=== PATIENT | male | born 1975 | race Two or more races ===

== ENCOUNTER 2017-09-19 16:52 | Emergency (ER) | payer SELFPAY ==
[~2017-09-19] VITALS: Ht 165.1 cm; Wt 72.6 kg
[2017-09-19] MEDS ORDERED: ASPIRIN 81 MG TAB.CHEW ONE (17:12)
[2017-09-19 17:26] LABS: BASOPHILS # (AUTO) 0.1 /CMM (0.0-0.2); BASOPHILS % (AUTO) 0.8 % (0.0-2.0); EOSINOPHILS % (AUTO) 6.1 % (0.0-6.0); HEMATOCRIT 45 % (39-51); HEMOGLOBIN 14.9 g/dL (13.5-17.5); LYMPHOCYTES % (AUTO) 25.1 % (20.0-44.0); MEAN CORPUSCULAR HEMOGLOBIN 28 PG (26.0-33.0); MEAN CORPUSCULAR HGB CONC 33 g/dl (31.0-36.0); MEAN CORPUSCULAR VOLUME 84 fL (80-96); MONOCYTES # (AUTO) 0.6 /CMM (0.1-1.30); NEUTROPHILS # (AUTO) 4.8 /CMM (1.8-8.9); PLATELET COUNT (AUTO) 307 /CMM (150-450); RDW COEFFICIENT OF VARIATION 12.8 (11.5-15.0); RED BLOOD CELL COUNT(AUTO) 5.37 MIL/uL (4.5-6.0)
--- NOTE | 2017-09-19 17:29 | NUR ---
BIB SELF C/O CP "PRESSURE" NON RADIATING CONTINUOSLY SINCE SAT. DENIES SOB, DIZZINESS, N/V, ARM/JAW PAIN @ THIS TIME. EKG DONE. ON MONITOR, NSR. MEDICATED FOR CP. PT ON HIS CELLPHONE, NAD NOTED @ THIS TIME.
[2017-09-19] MEDS ORDERED: ASPIRIN 81 MG TAB.CHEW PO ONE (17:30)
[2017-09-19 17:37] LABS: CALCIUM, SERUM 9.1 mg/dL (8.5-10.1); CARBON DIOXIDE 27 mmol/L (21-32); CHLORIDE 106 mmol/L (98-107); CREATININE 1.1 mg/dL (0.6-1.3); GLUCOSE 138 mg/dL (74-106); POTASSIUM 3.6 mmol/L (3.5-5.1); SODIUM SERUM 140 mmol/L (136-145); UREA NITROGEN, BLOOD 14 mg/dL (7-18)
[2017-09-19 17:41] LABS: INR 0.89 (0.85-1.15)
[2017-09-19 17:46] LABS: TROPONIN I < 0.017 ng/mL (0.00-0.056)
[2017-09-19 18:53] VITALS: BP 130/68
== END 2017-09-19 18:08 | disposition home or self-care (01) ==
LOC: ER 16:53
DX: F10.20 Alcohol dependence, uncomplicated (principal); R07.89 Other chest pain; Z60.2 Problems related to living alone; Y90.9 Presence of alcohol in blood, level not specified
CPT/HCPCS: 36415; 71045; 80048; 84484; 85025; 85730; 93005; 99285; A4606; Z7610

== ENCOUNTER 2019-02-05 16:12 | Emergency (ER) | payer BC ==
[~2019-02-05] VITALS: Ht 177.8 cm; Wt 74.8 kg
[2019-02-05 16:46] LABS: BASOPHILS # (AUTO) 0.1 /CMM (0.0-0.2); BASOPHILS % (AUTO) 1.3 % (0.0-2.0); EOSINOPHILS % (AUTO) 4.1 % (0.0-6.0); HEMATOCRIT 48 % (39-51); HEMOGLOBIN 15.6 g/dL (13.5-17.5); LYMPHOCYTES # (AUTO) 2.2 /CMM (0.8-4.8); MEAN CORPUSCULAR HGB CONC 32 g/dl (31.0-36.0); MEAN CORPUSCULAR VOLUME 87 fL (80-96); MONOCYTES # (AUTO) 0.6 /CMM (0.1-1.30); MONOCYTES % (AUTO) 6.4 % (2.0-12.0); NEUTROPHILS % (AUTO) 64.2 % (43.0-81.0); PLATELET COUNT (AUTO) 303 /CMM (150-450); RED BLOOD CELL COUNT(AUTO) 5.57 MIL/uL (4.5-6.0); WHITE BLOOD COUNT (AUTO) 9.3 K/uL (4.3-11.0)
[2019-02-05 17:00] LABS: CALCIUM, SERUM 9.1 mg/dL (8.5-10.1); POTASSIUM 4.1 mmol/L (3.5-5.1)
[2019-02-05 17:06] LABS: ALBUMIN 3.7 g/dL (3.4-5.0); BILIRUBIN,TOTAL 0.3 mg/dL (0.2-1.0); TOTAL PROTEIN, SERUM 7.5 g/dL (6.4-8.2)
--- NOTE | 2019-02-05 17:13 | NUR ---
NUMBNESS TO HANDS S/P DRINKING ALCOHOL, NO RESOLVED 3 DAYS. ON ROOM AIR, BREATHING EVENLY AND UNLABORED, CONNECTED TO THE MONITOR AND PULSE OX. KEPT COMFORTABLE, WILL CONTINUE TO MONITOR ACCORDINGLY.
[2019-02-05 17:37] VITALS: BP 143/65
--- NOTE | 2019-02-05 17:37 | NUR ---
Patient discharged to home in stable condition. Written and verbal after care instructions given. Patient verbalizes understanding of instruction.
== END 2019-02-05 17:37 | disposition home or self-care (01) ==
LOC: ER 16:12
DX: R20.2 Paresthesia of skin (principal); F10.10 Alcohol abuse, uncomplicated; Y90.9 Presence of alcohol in blood, level not specified; Z60.2 Problems related to living alone
CPT/HCPCS: 36415; 80053-TC; 83735-TC; 85025-TC

== ENCOUNTER 2019-12-15 23:49 | Emergency (ER) | payer SELFPAY ==
[~2019-12-15] VITALS: Ht 160 cm; Wt 59.9 kg
[2019-12-15] MEDS ORDERED: TDAP [DIPH/PERTUSSIS/TET] 0.5 ML VIAL IM ONE (23:53)
[2019-12-16] MEDS ORDERED: TDAP [DIPH/PERTUSSIS/TET] 0.5 ML VIAL IM ONE
--- NOTE | 2019-12-16 | NUR ---
PATIENT CAME TO ER BED 10 BIB [employer] AND RA C/O HITTING BETWEEN 3-6 CARS. PATIENT IS ROMANSH SPEAKING. PATIENT IS AAOX2. PATIENT HAS A LACERATION TO THE TOP OF HIS FOREHEAD. PATIENT STATES THAT HE HIT HIS CHEST ON THE STEERING WHEEL. PATIENT IS CONNECTED TO THE MONITOR. CHEST RISES AND FALLS EVENLY WITHOUT LABOR.
--- NOTE | 2019-12-16 00:12 | NUR ---
BLOOD DRAWN AND SENT TO THE LAB WITH PHARMACIST PER DIEM
[2019-12-16 00:24] LABS: BASOPHILS # (AUTO) 0.1 /CMM (0.0-0.2); BASOPHILS % (AUTO) 0.7 % (0.0-2.0); EOSINOPHILS % (AUTO) 1.2 % (0.0-6.0); HEMATOCRIT 46 % (39-51); HEMOGLOBIN 15.7 g/dL (13.5-17.5); LYMPHOCYTES # (AUTO) 2.1 /CMM (0.8-4.8); LYMPHOCYTES % (AUTO) 20.2 % (20.0-44.0); MEAN CORPUSCULAR HGB CONC 34 g/dl (31.0-36.0); MEAN CORPUSCULAR VOLUME 103 fL (80-96); MONOCYTES # (AUTO) 0.8 /CMM (0.1-1.30); MONOCYTES % (AUTO) 7.4 % (2.0-12.0); NEUTROPHILS # (AUTO) 7.3 /CMM (1.8-8.9); NEUTROPHILS % (AUTO) 70.5 % (43.0-81.0); PLATELET COUNT (AUTO) 243 /CMM (150-450); WHITE BLOOD COUNT (AUTO) 10.4 K/uL (4.3-11.0)
[2019-12-16] MEDS ORDERED: IOHEXOL-300 100 ML VIAL IV ONE (00:27)
[2019-12-16] MEDS ORDERED: IV NS 0.9% 250 ML IV ONE (00:27)
[2019-12-16 00:33] LABS: CALCIUM, SERUM 8.6 mg/dL (8.5-10.1); CARBON DIOXIDE 23 mmol/L (21-32); CHLORIDE 102 mmol/L (98-107); GLUCOSE 281 mg/dL (74-106); POTASSIUM 3.4 mmol/L (3.5-5.1); SODIUM SERUM 140 mmol/L (136-145); UREA NITROGEN, BLOOD 11 mg/dL (7-18)
--- NOTE | 2019-12-16 00:45 | NUR ---
PATIENT TAKEN TO CT VIA GURNEY.
[2019-12-16] MEDS ORDERED: KETOROLAC TROMETHAMINE 15 MG/ML VIAL ONE (01:04)
[2019-12-16] MEDS ORDERED: LIDOCAINE 1%-EPI 1:100,000 20 ML VIAL ONE (01:21)
--- NOTE | 2019-12-16 01:23 | NUR ---
AT BEDSIDE FOR SEDA.
[2019-12-16] MEDS ORDERED: KETOROLAC TROMETHAMINE INJ 30 MG/ML VIAL IV ONE (01:30)
--- NOTE | 2019-12-16 01:39 | NUR ---
PATIENT IS DISCHARGED TO [facility] AND IS IN CUSTODY.
[2019-12-16 01:44] VITALS: BP 123/79
== END 2019-12-16 01:44 | disposition home or self-care (01) ==
LOC: ER 23:50
DX: S01.01XA Laceration without foreign body of scalp, initial encounter (principal); R07.89 Other chest pain; M54.2 Cervicalgia; Z60.2 Problems related to living alone; V49.49XA Driver injured in collision with other motor vehicles in traffic accident, initial encounter; Y93.89 Activity, other specified; Y92.413 State road as the place of occurrence of the external cause; Y99.8 Other external cause status
CPT/HCPCS: 12001; 36415; 70450; 71260; 72125; 80048; 84484; 85025; 90471; 90715; 93005; 96374; 99285; A6403; J1885; J3490; J7050; Q9967

== ENCOUNTER 2021-11-08 19:49 | Emergency (ER) | payer SELFPAY ==
[~2021-11-08] VITALS: Ht 167.6 cm; Wt 86.2 kg
--- NOTE | 2021-11-08 20:10 | NUR ---
BIB FAMILY FOR C/O SEVERE NECK PAIN RADIATING TO L SHOULDER, ACCOMPANIED BY TWITCHING AND TREMORS. PATIENT ALERT AND ORIENTED X3. AMBULATORY WITH NON LABORED BREATHING IN BED 04 ON MONITOR AND POX, AWAITING MD LOVELACE.
[2021-11-08] MEDS ORDERED: KETOROLAC TROMETHAMINE INJ 30 MG/ML VIAL ONE (20:44)
[2021-11-08] MEDS ORDERED: METHOCARBAMOL (500MG) 500 MG TABLET ONE (20:44)
--- NOTE | 2021-11-08 20:48 | NUR ---
BLOOD COLLECTED AND SENT TO LAB
[2021-11-08] MEDS ORDERED: METHOCARBAMOL (750MG) 750 MG TABLET PO SCH (21:00)
[2021-11-08] MEDS ORDERED: KETOROLAC TROMETHAMINE INJ 30 MG/ML VIAL IV ONE (21:00)
[2021-11-08 21:19] LABS: BASOPHILS # (AUTO) 0.1 K/uL (0.0-0.2); BASOPHILS % (AUTO) 0.7 % (0.0-2.0); EOSINOPHILS % (AUTO) 4.2 % (0.0-6.0); HEMATOCRIT 48 % (39-51); HEMOGLOBIN 15.5 g/dL (13.5-17.5); LYMPHOCYTES # (AUTO) 2.1 K/uL (0.8-4.8); LYMPHOCYTES % (AUTO) 18.2 % (20.0-44.0); MEAN CORPUSCULAR HGB CONC 33 g/dl (31.0-36.0); MEAN CORPUSCULAR VOLUME 84 fL (80-96); MONOCYTES # (AUTO) 0.9 K/uL (0.1-1.30); MONOCYTES % (AUTO) 7.7 % (2.0-12.0); NEUTROPHILS # (AUTO) 7.8 K/uL (1.8-8.9); NEUTROPHILS % (AUTO) 69.2 % (43.0-81.0); PLATELET COUNT (AUTO) 263 K/uL (150-450); RED BLOOD CELL COUNT(AUTO) 5.67 MIL/uL (4.5-6.0); WHITE BLOOD COUNT (AUTO) 11.3 K/uL (4.3-11.0)
[2021-11-08 21:32] LABS: ALBUMIN 4.1 g/dL (3.4-5.0); BILIRUBIN,DIRECT 0.1 mg/dL (0.0-0.2); BILIRUBIN,TOTAL 0.6 mg/dL (0.2-1.0); CALCIUM, SERUM 9.3 mg/dL (8.5-10.1); CREATININE 1.2 mg/dL (0.6-1.3); POTASSIUM 3.8 mmol/L (3.5-5.1); TOTAL PROTEIN, SERUM 8.1 g/dL (6.4-8.2)
[2021-11-08] MEDS ORDERED: METH750T3 PO (22:10)
--- NOTE | 2021-11-08 22:17 | NUR ---
IV removed. Catheter intact and site benign. Pressure and 4x4 applied to site. No bleeding noted.
--- NOTE | 2021-11-08 22:17 | NUR ---
Patient discharged to home in stable condition. Written and verbal after care instructions given. Patient verbalizes understanding of instruction.
[2021-11-08 22:18] VITALS: BP 126/84
== END 2021-11-08 22:20 | disposition home or self-care (01) ==
LOC: ER 19:53
DX: M62.838 Other muscle spasm (principal); M54.2 Cervicalgia; I10 Essential (primary) hypertension; E11.9 Type 2 diabetes mellitus without complications; Z60.2 Problems related to living alone; Z79.899 Other long term (current) drug therapy
CPT/HCPCS: 99283; 96374; 85025; 80048; 80076; 36415; J1885